=== PATIENT | male | born 1990 | race Caucasian/White ===

== ENCOUNTER 2021-09-24 05:08 | Emergency (ER) | payer OTHER ==
[2021-09-24 05:25] VITALS: BP 127/92; PULSE 84; TEMP 98.1; BMI 27.1
[2021-09-24] MEDS ORDERED: METHOCARBAMOL 500 MG TABLET PO ONE (06:19)
[2021-09-24] MEDS ORDERED: KETOROLAC TROMETHAMINE 30 MG/1 ML VIAL IM ONE (06:19)
[2021-09-24] MEDS ORDERED: LIDOCAINE 5% TOPICAL PATCH TP ONE (06:20)
[2021-09-24] MEDS ORDERED: LIDOCAINE 5% TOPICAL PATCH ONE (06:21)
[2021-09-24] MEDS ORDERED: METHOCARBAMOL 500 MG TABLET ONE (06:21)
[2021-09-24] MEDS ORDERED: KETOROLAC TROMETHAMINE 30 MG/1 ML VIAL ONE (06:21)
[2021-09-24] MEDS ORDERED: LIDOCAINE PATCH REMOVAL MC SCH (22:00)
== END 2021-09-24 07:07 | disposition home or self-care (01) ==
LOC: JER 05:08
PROC: 3E0233Z Introduction of Anti-inflammatory into Muscle, Percutaneous Approach (ICD-10-PCS; principal; 2021-09-24)
DX: M25.511 Pain in right shoulder (principal)
CPT/HCPCS: 99284-25